=== PATIENT | male | born 1945 | race Caucasian/White ===

== ENCOUNTER → 2017-12-04 | Outpatient (CLI) | payer MEDICARE, BC ==
[2017-12-04 09:53] LABS: HCT 42.9 % (39.0-53.0); HGB 14.8 gm/dL (13.0-17.5); MCH 32.4 pg (25.0-35.0); MCHC 34.5 g/dL (31.0-37.0); MCV 94.1 fL (80.0-100.0); Mean Platelet Volume 6.7; Platelet Count 254 k/uL (150-450); RBC 4.56 m/uL (4.30-5.90); RDW 12.6 % (11.5-15.5); WBC 6.2 k/uL (3.8-10.6)
[2017-12-04 10:08] LABS: Anion Gap 12 mmol/L; Blood Urea Nitrogen 17 mg/dL (9-20); Carbon Dioxide 28 mmol/L (22-30); Chloride 101 mmol/L (98-107); Cholesterol 118 mg/dL (<200); Glucose 156 mg/dL (74-99); HDL Cholesterol 50 mg/dL (40-60); LDL Cholesterol,Calculated 55 mg/dL (0-99); Potassium 4.8 mmol/L (3.5-5.1); Sodium 141 mmol/L (137-145); Triglycerides 65 mg/dL (<150)
== END | disposition home or self-care (01) ==
LOC: LABWHC1 09:28
PROVIDERS: ATTEND Internal Medicine Interventional Cardiology
DX: E11.9 Type 2 diabetes mellitus without complications (principal); I10 Essential (primary) hypertension
CPT/HCPCS: 36415; 80048; 80061; 85027

== ENCOUNTER → 2018-01-20 | Outpatient (CLI) | payer MEDICARE ==
[2018-01-20 13:41] LABS: Blood Urea Nitrogen 17 mg/dL (9-20)
--- NOTE | 2018-01-20 16:36 | CT ---
EXAMINATION TYPE: CT angio thoracic/abd aorta DATE OF EXAM: 01/20/2018 COMPARISON: NONE HISTORY: 72-year-old male Presence of prosthetic heart valve in 1993 TECHNIQUE: Contiguous axial scanning of the chest and abdomen performed without and with IV Contrast, patient injected with 100 mL of Isovue 370. Coronal and sagittal MIP reconstructions performed. Umang tional 3-D reconstructions generated on a dedicated independent workstation. CT DLP: 1741.50 mGycm Automated exposure control for dose reduction was used. FINDINGS: Chest: Heart upper limits of normal in size without pericardial effusion. Median sternotomy wires are presen t. Dense mitral annular calcifications are present. Prosthetic aortic valve. No thoracic lymphadenopathy. Mild diffuse bronchial wall thickening suggests bronchitis or chronic asthma. No consolidation or ple ural effusion. Vasculature: Proximal ascending aorta and aortic root are normal caliber at 3.3 cm. Aneurysm of the upper ascending thoracic aorta/proximal arch at 4.7 cm. The mid aortic arch measures 3.8 cm. Both configuration to the aortic arch. Upper descending thoracic aorta measures 3.4 cm. Tortuosity of the descending thoracic aorta. Mid descending thoracic aorta ectatic and 2.7 cm. Distal descending thoracic aorta is ectatic at 2.6 cm. Upper abdominal aorta is ectatic at 2.7 cm. There is focal moderate narrowing of the origin of the celiac axis with poststenotic dilatation of 1. 2 cm. SMA is patent. The main right renal artery is patent. There are 2 right-sided accessory renal arteries. Mild atherosclerotic calcification at the origin of the left renal artery. A very tiny accessory left renal artery is noted, axial image 59. JAIRO is patent. No evidence for AAA. Mild atherosclerotic calcifications within the distal abdominal aorta and iliac arteries. Ectasia of the right and left common iliac arteries are 1.8 and 2.0 cm, respectively. ABDOMEN: Small hiatal hernia. Arterial phase imaging of the liver shows no gross abnormality. Gallbladder, adrenal glands, kidneys, spleen, and atrophic pancreas show no gross abnormality. No dilated small bowel, free fluid, or free air. No mesenteric or retroperitoneal lymphadenopathy. There is a pedunculated soft tissue measuring 3.1 cm within the cecum probably representing a stool b all, axial image 79. This can be correlated with routine screening colonoscopy. Moderate stool burden without pericolonic inflammatory change. Bones: Degenerative changes throughout the visualized spine. No osseous destructive process. IMPRESSION: 1. PROSTHETIC AORTIC VALVE. DENSE MITRAL ANNULAR CALCIFICATIONS. 2. THERE IS ANEURYSM OF THE DISTAL ASCENDING AORTA/PROXIMAL ARCH AT 4.7 CM AND MILD ANEURYSM OF THE U PPER DESCENDING THORACIC AORTA AT 3.4 CM. 3. THE REMAINDER OF THE DESCENDING THORACIC AORTA AND UPPER ABDOMINAL AORTA ARE ECTATIC MEASURING UP TO 2.7 CM. NO EVIDENCE FOR AAA. 4. ECTATIC RIGHT AND LEFT COMMON ILIAC ARTERIES MEASURING UP TO 1.8 AND 2.0 CM, RESPECTIVELY. 5. 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 6. NOTE MULTIPLE ACCESSORY RENAL ARTERIES. 7. A 3.1 CM SOFT TISSUE DENSITY LOCATED IN THE CECUM LIKELY STOOL BALL. CORRELATE WITH FINDINGS ON RO UTINE SCREENING COLONOSCOPY. 8. SMALL HIATAL HERNIA.
== END | disposition home or self-care (01) ==
LOC: RADCTMAIN 12:57
PROVIDERS: ATTEND Internal Medicine Interventional Cardiology
DX: I71.2 Thoracic aortic aneurysm, without rupture (principal); I77.810 Thoracic aortic ectasia; I77.811 Abdominal aortic ectasia; Z95.2 Presence of prosthetic heart valve
CPT/HCPCS: 82565; 84520; 75635; 71275; 36415; Q9967

== ENCOUNTER → 2022-04-29 | Outpatient (CLI) | payer MEDICARE ==
--- NOTE | 2022-04-29 17:30 | CT ---
EXAMINATION TYPE: CT angio chest DATE OF EXAM: 04/29/2022 COMPARISON: 01/20/2018 HISTORY: 76-year-old male I71.2, thoracic aortic aneurysm TECHNIQUE: Contiguous axial scanning of the chest performed without and with IV Contrast, patient inj ected with 100cc mL of Isovue 370. Coronal/sagittal MIP reconstructions performed. 3-D reconstruction s generated on a dedicated workstation. CT DLP: 1004 mGycm Automated exposure control for dose reduction was used. FINDINGS: Median sternotomy wires are present with post-CABG changes. There also appears to be a prosthetic aor tic valve. Heart upper limits of normal in size. No pericardial effusion. Dense mitral annular calcifications ar e noted. Query interposition graft of the aortic isthmus and lower ascending aorta with a caliber up to 3.4 cm . There is aneurysm of the upper ascending aorta up to 4.8 cm, unchanged. Bovine configuration to the aortic arch. Mild aneurysm distal arch 3.6 cm versus 3.4 cm, previously. Tortuous descending thoracic aorta is mildly aneurysmal to 3.0 cm versus 2.9 cm, previously. No thoracic lymphadenopathy by CT size criteria. No consolidation or pleural effusion. Small hiatal hernia. Visualized upper abdomen shows a few benign right-sided renal cortical cysts shima suring up to 1.2 cm. Bones: DISH midthoracic spine. Moderate degenerative disc disease throughout. IMPRESSION: 1. PROSTHETIC AORTIC VALVE. DENSE MITRAL ANNULAR CALCIFICATIONS. QUERY PREVIOUS INTERPOSITION GRAFT O F THE AORTIC ISTHMUS AND LOWER ASCENDING AORTA. 2. ANEURYSM UPPER ASCENDING AORTA UP TO 4.8 CM UNCHANGED. 3. MILD ANEURYSM DISTAL AORTIC ARCH AT 3.6 CM VERSUS 3.4 CM, PREVIOUSLY. 4. MILD ANEURYSM LOWER DESCENDING THORACIC AORTA AT 3.0 CM VERSUS 2.9 CM, PREVIOUSLY. 5. SMALL HIATAL HERNIA.
== END | disposition home or self-care (01) ==
LOC: RADCTMAIN 14:19
PROVIDERS: ATTEND Internal Medicine Interventional Cardiology
DX: I71.2 Thoracic aortic aneurysm, without rupture (principal)
CPT/HCPCS: 82565; 84520; 71275; 36415; Q9967

== ENCOUNTER → 2023-05-21 | Outpatient (CLI) | payer MEDICARE ==
--- NOTE | 2023-05-21 11:36 | US ---
EXAMINATION TYPE: US prostate transrectal DATE OF EXAM: 05/21/2023 COMPARISON: NONE CLINICAL INDICATION: Male, 77 years old with history of R36.1 HEMATOSPERMIA; This examination was performed using the transrectal probe. EXAM MEASUREMENTS: Gland Size: 4.9 x 2.8 x 4.9cm Volume: 35.9ml Predicted PSA: 0.02 Actual PSA (if available):0.70 Enlarged heterogeneous prostate IMPRESSION: No evidence for suspicious prostate gland lesion. Predicted PSA = volume x 0.12 ng/ml Calculated Volume = 0.5236 x L x W x H
== END | disposition home or self-care (01) ==
LOC: RADUSWWP 10:14
PROVIDERS: ATTEND Urology
DX: R36.1 Hematospermia (principal)
CPT/HCPCS: 76872